=== PATIENT | male | born 1950 | race Caucasian/White ===

== ENCOUNTER 2021-02-25 15:47 | Emergency (ER) | payer MEDICARE ==
[~2021-02-25 15:47] MED LIST: ULTRAM50 MG PO
== END 2021-02-25 20:47 | disposition home or self-care (01) ==
LOC: ER1 15:47
DX: S01.111A Laceration without foreign body of right eyelid and periocular area, initial encounter (principal); W22.8XXA Striking against or struck by other objects, initial encounter
CPT/HCPCS: 12011; 70450; 99283